=== PATIENT | male | born 1950 | race Caucasian/White ===

== ENCOUNTER 2024-11-01 16:17 | Emergency (ER) | payer MEDICARE, SELFPAY ==
[2024-11-01 16:22] VITALS: BP 140/94
--- NOTE | 2024-11-01 17:35 | ED.GENMED ---
History of Present Illness
General
Chief Complaint: DVT/Possible Blood Clot
Source: patient
Exam Limitations: none
Time Seen by Provider: 11/01/24 17:18
Nursing documentation reviewed up to this point in time: agreed with
History of Present Illness
History of Present Illness:
73-year-old male sent in by physical therapist who saw him for the first time today for swelling of the left lower extremity this has been occurred for some time since his left total knee replacement by Dr. Cervantes September of this year, he has
chronic shortness of breath due to pulmonary fibrosis, no more than usual, temperature today of 99 does not feel sick no fever no chills, no nausea or vomiting he states he spoke with his physician who states that swelling can be normal after knee
replacement for couple years, although he agreed that he should have an ultrasound to rule out a clot no history of clots, he takes aspirin but no other blood thinners
Past History
Past History
ED Past Medical History: Other (Pulmonary fibrosis)
ED Past Surgical History: Orthopedic
Social History
Tobacco: Non-smoker
Alcohol: None
Drug: None
Personal:
Living: with family
Employment: Retired
Phy Exam
Physical Exam
Physical Exam:
Physical Exam
General: no apparent distress, not acutely ill
Neck: No jaundice
Heart: s1/s2 regular rate and rhythm, no murmur. equal radial pulses.
Lungs: no acute respiratory distress. clear bilaterally
Neuro: alert and oriented. no focal neurological deficits
Skin: no rash
Psychiatric: well kept. interactive and cooperative
Extremities: Asymmetric swelling of the left calf most pronounced in the lateral compartment minimal warmth minimal tenderness well-healed surgical scar over the anterior knee
Course
Orders/Labs/Results
Orders:
Orders
11/01/24 16:29
US Periph Venous LOWER Ext LT Urgent
Comment: left lower tightness with swelling
Reason For Exam: s/p knee replacement 10/06
Vital Signs
Initial and Last Documented VS:
Initial Vital Signs
Temp Pulse Resp BP Pulse Ox
97.7 F 78 16 140/94 98
11/01/24 16:22 11/01/24 16:22 11/01/24 16:22 11/01/24 16:22 11/01/24 16:22
Last Documented Vital Signs
Temp Pulse Resp BP Pulse Ox
97.7 F 78 16 140/94 98
11/01/24 16:22 11/01/24 16:22 11/01/24 16:22 11/01/24 16:22 11/01/24 16:22
MDM/Problems Addressed
Differential Diagnosis Includes:
Postop swelling DVT seroma cellulitis no signs of acute arterial insufficiency
MDM/Problems Addressed:
Left calf swelling into thigh status post knee surgery--- replacement
Chronic conditions affecting care:
Idiopathic pulmonary fibrosis orthopedic surgery
Acute Exacerbation and/or Progression of Chronic Illness:
Idiopathic pulmonary fibrosis
*Radiology
Radiology exam reviewed: radiology read reviewed
*Pulse Oximetry
Patient hypoxic: no
*Critical Care Note
Total Time (30-74mins, 75-104mins- exclusive of procedures): Not Applicable
Update Note
Update Note:
Update ultrasound noted looks like a Kuhn's cyst, will have him follow-up with his orthopedist
ED Attending Note
-
Portions of this chart may have been created with voice recognition software.� Occasional wrong word or��sound alike� substitutions may have occurred due to the inherent limitations of voice recognition software.
Discharge Plan
Departure
Patient Disposition: Home (Routine Discharge)
Date of Disposition: 11/01/24
Time of Disposition: 19:08
Patient with high blood pressure during this ER visit?: No
Condition: Good
Covid-19: Not Applicable
Discharge Problem:
Kuhn's cyst of knee
Instructions: Kuhn's Cyst (DC)
Referrals:
Rosa Maria Rosenberg MD [Family Provider] -
Henrry Cervantes MD [Non-Admitting Privileges] - Next open appointment
Activity Restrictions/Additional Instructions:
Discuss your symptoms with your orthopedist
Interventions
Interventions:
*Risk Screen - Suicide Last Done: 11/01/24 16:22
*Neglect/Abuse Screening Last Done: 11/01/24 16:22
ED- Cardiac Assessment Last Done: 11/01/24 17:45
ED- Pulmonary Assessment Last Done: 11/01/24 17:45
ED-Peripheral Vascular Assessment Last Done: 11/01/24 17:45
ED-Skin Assessment Last Done: 11/01/24 17:45
Discharge Date and Time
Print Language: UPPER SORBIAN
[2024-11-01 19:30] VITALS: BP 125/74
== END 2024-11-01 19:33 | disposition home or self-care (01) ==
LOC: EMR 16:17
PROVIDERS: EMERGENCY PHYSICIAN Emergency Medicine; FAMILY PHYSICIAN Internal Medicine
DX: M71.22 Synovial cyst of popliteal space [Baker], left knee (principal); Z96.652 Presence of left artificial knee joint; J84.112 Idiopathic pulmonary fibrosis
CPT/HCPCS: 99284; 93971